=== PATIENT | male | born 1970 | race Caucasian/White ===

== ENCOUNTER 2017-02-01 21:08 | Emergency (ER) | payer BC | END 2017-02-01 23:25 | disposition home or self-care (01) | LOC: ER1 21:08 | DX: N13.2 Hydronephrosis with renal and ureteral calculous obstruction (principal) | CPT/HCPCS: 81001; 87086; 96372; 99284; J1885 ==

== ENCOUNTER 2021-04-06 20:31 | Emergency (ER) | payer BC | END 2021-04-06 20:35 | disposition left against medical advice (07) | LOC: ER1 20:31 | DX: Z53.21 Procedure and treatment not carried out due to patient leaving prior to being seen by health care provider (principal) ==